=== PATIENT | male | born 1970 | race Two or more races ===

== ENCOUNTER 2018-10-02 18:38 | Inpatient (IN) | payer OTHER ==
[~2018-10-02] VITALS: Ht 190.5 cm; Wt 110.7 kg
[2018-10-02] MEDS ORDERED: SODIUM CHLORIDE FLUSH 10ML SYR IVF ONE (19:00)
[2018-10-02] MEDS ORDERED: OMNIPAQUE 350 MG/ML, 100ML BOTTLE ONE (19:00)
[2018-10-02 19:08] LABS: BASOPHILS # (AUTO) 0.02 x10^3/uL (0-0.1); BASOPHILS % (AUTO) 0 % (0-1); EOSINOPHILS # (AUTO) 0.09 x10^3/uL (0-0.4); EOSINOPHILS % (AUTO) 1 % (1-7); LYMPHOCYTES # (AUTO) 2.08 x10^3/uL (1-3.4); LYMPHOCYTES % (AUTO) 26 % (22-44); MD NO; MEAN CORPUSCULAR HEMOGLOBIN 31.9 pg (27.5-34.5); MEAN CORPUSCULAR HGB CONC 33.9 g/dL (33.2-36.2); MEAN CORPUSCULAR VOLUME 94.2 fL (81-97); MEAN PLATELET VOLUME 8.6 fL (7.4-10.4); MONOCYTES # (AUTO) 0.99 x10^3/uL (0.2-0.8); MONOCYTES % (AUTO) 12 % (2-9); NEUTROPHILS # (AUTO) 4.78 x10^3/uL (1.8-6.8); NEUTROPHILS % (AUTO) 60 % (42-75); PLATELET COUNT 227 x10^3/uL (130-400); RED BLOOD COUNT 4.74 x10^6/uL (4.38-5.82)
[2018-10-02 19:19] LABS: ALANINE AMINOTRANSFERASE 149 U/L (12-78); ALBUMIN 4.1 g/dL (3.4-5.0); ANION GAP 6 mmol/L (5-15); CALCIUM 8.7 mg/dL (8.5-10.1); CHLORIDE 110 mmol/L (98-107); CREATININE 1.13 mg/dL (0.7-1.3)
[2018-10-02 19:21] LABS: ALKALINE PHOSPHATASE 76 U/L (45-117); BILIRUBIN,TOTAL 0.8 mg/dL (0.2-1.0); TOTAL PROTEIN 8.3 g/dL (6.4-8.2)
[2018-10-02 19:29] LABS: MICROSCOPIC NOT IND
--- NOTE | 2018-10-02 19:32 | NUR ---
BREAK RN: PT HERE FOR LUQ PAIN. PAIN IS SHARP AND FEELS LIKE GAS PAIN WITH BLOATING. PT ALSO HAS HAD SOME CONSTIPATION FOR THE PAST WEEK. PT TO OTC MEDICATION FOR GAS AND BLOATING WITH MINIMAL RELIEF. VSS. PIV PLACED AND UA SENT TO LAB. PT TO CT.
[2018-10-02 19:35] LABS: CULTURE INDICATED? NO
--- NOTE | 2018-10-02 20:11 | NUR ---
PT BACK FROM CT, ON MONITOR. AWAITING RECHECK
--- NOTE | 2018-10-02 21:00 | NUR ---
AT BEDSIDE, PT RESTING IN [facility] ON MONITOR, VSS. CANELO.
[2018-10-02] MEDS ORDERED: SODIUM CHLORIDE 0.9% 1,000ML IVBOLUS ONE (21:30)
[2018-10-02] MEDS ORDERED: SODIUM CHLORIDE 0.9% 1,000 ML IV ONE (21:47)
[2018-10-02] MEDS ORDERED: hydrALAzine 20 MG/ML, 1ML IVPush PRN (22:00)
[2018-10-02] MEDS ORDERED: ONDANSETRON 2MG/ML, 2ML IVPush PRN ×2 (22:00)
[2018-10-02] MEDS ORDERED: morphine SULFATE 10 MG/ML, 1ML IVPush PRN (22:00)
[2018-10-02] MEDS: ENOXAPARIN 40 MG/0.4 ML SQ SCH (22:00)
[2018-10-02] MEDS ORDERED: MORPHINE SULFATE 4 MG/ML, 1ML IVPush PRN (22:00)
[2018-10-02 22:13] LABS: TRIGLYCERIDES 75 mg/dL (50-200)
--- NOTE | 2018-10-02 22:14 | NUR ---
TRIED TO CALL REPORT, PER [employer] NURSE WILL CALL BACK
--- NOTE | 2018-10-02 22:22 | NUR ---
REPORT TO SHIREEN MORA
--- NOTE | 2018-10-02 22:31 | NUR ---
PT TO US, RTG WHEN BACK
[2018-10-02 23:00] VITALS: BP 148/96
[2018-10-02] MEDS: SODIUM CHLORIDE 0.9% 1,000 ML IV SCH (23:54)
[2018-10-03] MEDS ORDERED: DIPHENHYDRAMINE 50 MG/ML, 1ML IVPush ONE
[2018-10-03 06:07] LABS: BASOPHILS # (AUTO) 0.03 x10^3/uL (0-0.1); BASOPHILS % (AUTO) 1 % (0-1); EOSINOPHILS # (AUTO) 0.15 x10^3/uL (0-0.4); EOSINOPHILS % (AUTO) 2 % (1-7); LYMPHOCYTES # (AUTO) 2.03 x10^3/uL (1-3.4); LYMPHOCYTES % (AUTO) 31 % (22-44); MD NO; MEAN CORPUSCULAR HEMOGLOBIN 32.2 pg (27.5-34.5); MEAN CORPUSCULAR HGB CONC 34.2 g/dL (33.2-36.2); MEAN PLATELET VOLUME 8.7 fL (7.4-10.4); MONOCYTES # (AUTO) 0.89 x10^3/uL (0.2-0.8); MONOCYTES % (AUTO) 14 % (2-9); NEUTROPHILS # (AUTO) 3.37 x10^3/uL (1.8-6.8); NEUTROPHILS % (AUTO) 52 % (42-75); PLATELET COUNT 222 x10^3/uL (130-400); RED BLOOD COUNT 4.78 x10^6/uL (4.38-5.82); RED CELL DISTRIBUTION WIDTH 13.1 % (9.4-14.8)
[2018-10-03 06:16] LABS: ALBUMIN 3.6 g/dL (3.4-5.0); ANION GAP 4 mmol/L (5-15); CALCIUM 8.5 mg/dL (8.5-10.1); CHLORIDE 110 mmol/L (98-107)
[2018-10-03 06:20] LABS: ALANINE AMINOTRANSFERASE 146 U/L (12-78); ALKALINE PHOSPHATASE 70 U/L (45-117); BILIRUBIN,TOTAL 1.1 mg/dL (0.2-1.0); CREATININE 1.04 mg/dL (0.7-1.3); TOTAL PROTEIN 7.9 g/dL (6.4-8.2)
[2018-10-03 08:13] VITALS: BP 134/79
[2018-10-03] MEDS: SODIUM CHLORIDE 0.9% 1,000 ML IV SCH ×2 (09:34→23:30)
[2018-10-03] MEDS: FAMOTIDINE 20 MG/2 ML IVPush SCH ×2 (09:34→20:09)
[2018-10-03] MEDS: morphine SULFATE 10 MG/ML, 1ML IVPush PRN ×2 (10:11→14:03)
[2018-10-03 14:07] VITALS: BP 122/81
[2018-10-03 18:53] LABS: MD NO
[2018-10-03 18:54] LABS: BASOPHILS # (AUTO) 0.03 x10^3/uL (0-0.1); BASOPHILS % (AUTO) 0 % (0-1); EOSINOPHILS % (AUTO) 1 % (1-7); LYMPHOCYTES # (AUTO) 2.16 x10^3/uL (1-3.4); LYMPHOCYTES % (AUTO) 27 % (22-44); MEAN CORPUSCULAR HGB CONC 34.1 g/dL (33.2-36.2); MEAN CORPUSCULAR VOLUME 93.6 fL (81-97); MEAN PLATELET VOLUME 8.6 fL (7.4-10.4); MONOCYTES # (AUTO) 0.74 x10^3/uL (0.2-0.8); MONOCYTES % (AUTO) 9 % (2-9); NEUTROPHILS % (AUTO) 63 % (42-75); PLATELET COUNT 232 x10^3/uL (130-400); RED BLOOD COUNT 4.94 x10^6/uL (4.38-5.82)
[2018-10-03 19:27] VITALS: BP 128/74
[2018-10-03] MEDS: ENOXAPARIN 40 MG/0.4 ML SQ SCH (22:00)
[2018-10-04 03:21] VITALS: BP 111/64
[2018-10-04 06:41] LABS: ALANINE AMINOTRANSFERASE 118 U/L (12-78); ALBUMIN 3.3 g/dL (3.4-5.0); ANION GAP 4 mmol/L (5-15); CALCIUM 8.5 mg/dL (8.5-10.1); CHLORIDE 113 mmol/L (98-107); CREATININE 1.06 mg/dL (0.7-1.3)
[2018-10-04 06:56] LABS: ALKALINE PHOSPHATASE 76 U/L (45-117); BILIRUBIN,TOTAL 0.7 mg/dL (0.2-1.0); TOTAL PROTEIN 7.1 g/dL (6.4-8.2)
[2018-10-04 07:23] VITALS: BP 131/79
[2018-10-04] MEDS: FAMOTIDINE 20 MG/2 ML IVPush SCH ×2 (09:08→20:56)
[2018-10-04] MEDS: SODIUM CHLORIDE 0.9% 1,000 ML IV SCH (09:09)
[2018-10-04 12:45] VITALS: BP 170/94
[2018-10-04 13:00] VITALS: BP 162/103
[2018-10-04 19:25] VITALS: BP 135/90
[2018-10-04] MEDS: ENOXAPARIN 40 MG/0.4 ML SQ SCH (20:56)
[2018-10-04] MEDS ORDERED: SODIUM CHLORIDE 0.9% 1,000 ML IV SCH ×2 (21:48)
[2018-10-05 01:43] VITALS: BP 138/87
[2018-10-05 07:36] VITALS: BP 135/75
[2018-10-05] MEDS: FAMOTIDINE 20 MG/2 ML IVPush SCH (08:16)
[2018-10-05] MEDS ORDERED: FENTANYL PF 100 MCG/2ML IV PRN (11:00)
[2018-10-05] MEDS ORDERED: OXYcodone 5 MG/5 ML ORAL.SOL UDC PO PRN (11:00)
[2018-10-05] MEDS ORDERED: ONDANSETRON ODT 8 MG PO PRN (11:00)
[2018-10-05] MEDS ORDERED: ACETAMINOPHEN 325 MG TABLET PO PRN (11:00)
[2018-10-05] MEDS ORDERED: PROMETHAZINE 25 MG/ML, 1ML IV PRN (11:00)
[2018-10-05] MEDS ORDERED: MEPERIDINE/PF 25MG/0.5ML IVPush PRN (11:00)
[2018-10-05] MEDS ORDERED: ONDANSETRON 2MG/ML, 2ML IV PRN (11:00)
[2018-10-05] MEDS ORDERED: FENTANYL PF 100 MCG/2ML ONE (11:13)
[2018-10-05] MEDS ORDERED: ONDANSETRON 2MG/ML, 2ML ONE (11:36)
[2018-10-05] MEDS ORDERED: SUCCINYLCHOLINE 20 MG/ML, 10ML ONE (11:36)
[2018-10-05] MEDS ORDERED: GLYCOPYRROLATE 0.2MG/1ML, 5ML ONE (11:36)
[2018-10-05] MEDS ORDERED: NEOSTIGMINE 1 MG/ML, 10ML ONE (11:36)
[2018-10-05] MEDS ORDERED: DEXAMETHASONE 4 MG/ML, 1ML ONE (11:36)
[2018-10-05] MEDS ORDERED: PROPOFOL 10 MG/ML, 20ML ONE (11:36)
[2018-10-05] MEDS ORDERED: ROCURONIUM 10MG/ML,5ML ONE (11:36)
[2018-10-05] MEDS ORDERED: CEFAZOLIN 1,000 MG ONE (11:36)
[2018-10-05 12:44] VITALS: BP 126/84
[2018-10-05] MEDS: OXYcodone/APAP 5/325MG TABLET PO PRN ×2 (14:03→18:20)
== END 2018-10-05 21:15 | disposition home or self-care (01) | DRG 440 ==
LOC: ED 19:27 → EDIP 21:57 → 4NOR 23:11
PROVIDERS: ADMIT Family Medicine; ATTEND Family Medicine
PROC: 0DB48ZX Excision of Esophagogastric Junction, Via Natural or Artificial Opening Endoscopic, Diagnostic (ICD-10-PCS; 2018-10-05)
PROC: BF47ZZZ Ultrasonography of Pancreas (ICD-10-PCS; 2018-10-05)
PROC: 0DB58ZX Excision of Esophagus, Via Natural or Artificial Opening Endoscopic, Diagnostic (ICD-10-PCS; 2018-10-05)
PROC: 0FDG4ZX Extraction of Pancreas, Percutaneous Endoscopic Approach, Diagnostic (ICD-10-PCS; principal; 2018-10-05 10:00)
DX: K85.00 Idiopathic acute pancreatitis without necrosis or infection (principal); K59.00 Constipation, unspecified; E86.0 Dehydration; I10 Essential (primary) hypertension; Z87.891 Personal history of nicotine dependence; Z79.899 Other long term (current) drug therapy
CPT/HCPCS: 36415; 99285; J3490; 74177; 74181; 76700; 80053; 81003; 83690; 83735; 84478; 85025; 88172; 88173; 88177; 88305; 88307; G0378; J0690; J1100; J2405; J2704; J2710; J3010; Q9967; J0330; J0360; J1200; J2270; J7030

== ENCOUNTER 2020-10-04 08:44 | Day surgery (SDC) | payer MEDICAID ==
[~2020-10-04] VITALS: Ht 190.5 cm; Wt 92.7 kg
[2020-10-04 09:22] VITALS: BP 129/88
[2020-10-04] MEDS ORDERED: CHLORHEXIDINE 15 ML UDC PO ONE (09:30)
[2020-10-04] MEDS ORDERED: LACTATED RINGERS 1,000 ML IV SCH (09:30)
[2020-10-04] MEDS ORDERED: MIDAZOLAM 1 MG/ML, 2ML ONE (12:45)
[2020-10-04] MEDS ORDERED: PROPOFOL 50 ML ONE (12:46)
[2020-10-04] MEDS ORDERED: FENTANYL PF 100 MCG/2ML ONE (13:21)
[2020-10-04] MEDS ORDERED: ROCURONIUM 10MG/ML,5ML ONE (13:53)
[2020-10-04] MEDS ORDERED: GLYCOPYRROLATE 0.2MG/1ML, 5ML ONE (13:53)
[2020-10-04] MEDS ORDERED: ONDANSETRON 2MG/ML, 2ML ONE (13:53)
[2020-10-04] MEDS ORDERED: NEOSTIGMINE 1 MG/ML, 10ML ONE (13:53)
[2020-10-04] MEDS ORDERED: PROPOFOL 10 MG/ML, 20ML ONE (13:53)
[2020-10-04] MEDS ORDERED: CEFAZOLIN 1,000 MG ONE (13:53)
[2020-10-04] MEDS ORDERED: SUCCINYLCHOLINE 20 MG/ML, 10ML ONE (13:53)
== END 2020-10-04 15:15 | disposition home or self-care (01) ==
LOC: OUT 08:44
PROVIDERS: ATTEND Internal Medicine Gastroenterology
DX: R93.3 Abnormal findings on diagnostic imaging of other parts of digestive tract (principal); K44.9 Diaphragmatic hernia without obstruction or gangrene; K29.50 Unspecified chronic gastritis without bleeding; Z20.822 Contact with and (suspected) exposure to COVID-19; Z79.899 Other long term (current) drug therapy; Z85.07 Personal history of malignant neoplasm of pancreas; Z90.49 Acquired absence of other specified parts of digestive tract
CPT/HCPCS: 43239; 43242; 88172; 88173; 88305; 88307; J0330; J0690; J2250; J2405; J2704; J3010; J7120; U0003; J2710